=== PATIENT | female | born 1990 ===

== ENCOUNTER 2018-03-15 02:49 | Emergency (ER) | payer OTHER, BC ==
[2018-03-15 03:05] VITALS: BMI 29.2
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
[2018-03-15 03:17] VITALS: RESP 18; TEMP 98.7
[2018-03-15 06:34] VITALS: BP 135/78; PULSE 89; O2SAT 100
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
== END 2018-03-15 06:30 | disposition home or self-care (01) ==
LOC: ED 02:49
DX: S09.90XA Unspecified injury of head, initial encounter (principal); S90.01XA Contusion of right ankle, initial encounter; V49.49XA Driver injured in collision with other motor vehicles in traffic accident, initial encounter; Y92.410 Unspecified street and highway as the place of occurrence of the external cause

== ENCOUNTER 2018-03-16 12:23 | Emergency (ER) | payer OTHER, BC ==
[2018-03-16 12:23] VITALS: BMI 29.2
[2018-03-16 12:30] VITALS: RESP 18; TEMP 98.4
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
[2018-03-16 13:30] VITALS: BP 120/78; PULSE 73; O2SAT 100
== END 2018-03-16 13:29 | disposition home or self-care (01) ==
LOC: ED 12:23
DX: M79.671 Pain in right foot (principal)